=== PATIENT | female | born 1975 | race Caucasian/White ===

== ENCOUNTER → 2016-10-15 | Outpatient (CLI) | payer OTHER ==
--- NOTE | 2016-10-15 15:24 | DX ---
Left Shoulder, 3 Views Clinical Indications: Pain. Trauma after skiing. Findings: The humeral head is normally located in the glenoid fossa. No fracture or dislocation. N o evidence of neoplasm, necrosis, or arthritis. No calcifications of soft tissues. Impression: Normal. Results discussed by Dr. Argueta with Dr. Peña on October 15, 2016, at 1454 hours.
== END ==
LOC: FIMAGING 14:36
PROVIDERS: ATTEND Psychiatry & Neurology Neurology
DX: S49.92XA Unspecified injury of left shoulder and upper arm, initial encounter (principal); V00.328A Other snow-ski accident, initial encounter; Y93.23 Activity, snow (alpine) (downhill) skiing, snowboarding, sledding, tobogganing and snow tubing

== ENCOUNTER → 2018-06-23 | Outpatient (CLI) | payer OTHER | LOC: FIMAGING 14:27 | PROVIDERS: ATTEND Obstetrics & Gynecology | DX: Z12.31 Encounter for screening mammogram for malignant neoplasm of breast (principal) ==